=== PATIENT | male | born 1995 | race Caucasian/White ===

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

== ENCOUNTER 2017-01-22 11:46 | Emergency (ER) | payer OTHER ==
[2017-01-22 11:57] VITALS: BP 120/74
--- NOTE | 2017-01-22 12:14 | UC ---
Skin Complaint HPI - HPI Summary HPI Summary: bug bites all over x 1 day very itchy - History of Current Complaint Chief Complaint: UCSkin Time Seen by Provider: 01/22/17 12:03 Stated Complaint: SKIN COMPLAINT Hx Obtained From: Patient Onset/Duration: Gradual Onset, Lasting Days - 1, Still Present Timing: Constant Onset Severity: Moderate Current Severity: Moderate Location: Diffuse Character: Pruritus, Redness Aggravating: Nothing Alleviating: Nothing Associated Signs & Symptoms: Positive: Rash - Allergy/Home Medications Allergies/Adverse Reactions: Allergies Allergy/AdvReac Type Severity Reaction Status Date / Time Bee Venom Allergy Difficulty Verified 01/22/17 11:57 Breathing/Wheezing dust mites, animal dander Allergy Sneezing Uncoded 01/22/17 11:57 Review of Systems Constitutional: Negative Skin: Rash Eyes: Negative ENT: Negative Respiratory: Negative Cardiovascular: Negative Gastrointestinal: Negative All Other Systems Reviewed And Are Negative: Yes PMH/Surg Hx/FS Hx/Imm Hx Previously Healthy: Yes - Surgical History Surgical History: None - Family History Known Family History: Positive: Hypertension - Social History Alcohol Use: None Substance Use Type: None Smoking Status (MU): Never Smoked Tobacco - Immunization History Most Recent Influenza Vaccination: 04/17 Vaccination Up to Date: Yes Physical Exam Triage Information Reviewed: Yes Appearance: Well-Appearing, No Pain Distress, Well-Nourished Vital Signs: Initial Vital Signs Temp 99 F 01/22/17 11:51 Pulse 96 01/22/17 11:51 Resp 16 01/22/17 11:51 BP 120/74 01/22/17 11:51 Pulse Ox 100 01/22/17 11:51 Vital Signs Reviewed: Yes Eye Exam: Normal Eyes: Positive: Conjunctiva Clear ENT: Positive: Normal ENT inspection, Hearing grossly normal, Pharynx normal Neck: Positive: Supple, Nontender, No Lymphadenopathy Respiratory: Positive: Chest non-tender, Lungs clear, Normal breath sounds Cardiovascular: Positive: RRR, No Murmur, Pulses Normal Abdomen Description: Positive: Nontender, No Organomegaly, Soft Bowel Sounds: Positive: Present Skin: Positive: rashes - multiple papular rash on the arms, back , neck , abdomen . Course/Dx - Diagnoses Provider Diagnoses: insect bite Discharge - Discharge Plan Condition: Stable Disposition: HOME Prescriptions: Triamcinolone 0.1% CREAM (NF) [Kenalog 0.1% Cream (NF)] 1 applic TOPICAL BID # 60 gm hydrOXYzine HCL TAB* [Atarax 25 MG TAB*] 25 mg PO TID PRN #15 tab PRN Reason: Itching Patient Education Materials: Insect Bite or Sting (ED) Referrals: Barbara Maynard MD [Primary Care Provider] - If Needed
== END 2017-01-22 12:17 | disposition home or self-care (01) ==
LOC: UCCORT 11:46
DX: S40.862A Insect bite (nonvenomous) of left upper arm, initial encounter (principal); S40.861A Insect bite (nonvenomous) of right upper arm, initial encounter; S10.96XA Insect bite of unspecified part of neck, initial encounter; S30.861A Insect bite (nonvenomous) of abdominal wall, initial encounter; W57.XXXA Bitten or stung by nonvenomous insect and other nonvenomous arthropods, initial encounter; Y93.9 Activity, unspecified; Y92.9 Unspecified place or not applicable
CPT/HCPCS: 99212; G0463

== ENCOUNTER 2017-06-17 09:24 | Emergency (ER) | payer BC, OTHER ==
[2017-06-17 09:43] VITALS: BP 110/60
--- NOTE | 2017-07-09 21:28 | UC ---
Respiratory Complaint HPI - HPI Summary HPI Summary: pt reports intermittent episodes(3) lasting minutes at a time over the last 2 days wherein he feels like he cannot get a good breath. pt has a h/o asthma but does not currently have a rescue inhaler. upon further questioning, pt denies wheezing. he states that his experiences are not like those he has when he has had asthma attacks. rather, he feels like his chest freezes or locks up. he reports a h/o of panic attacks and states that the sx he has been having over the last 2 days feel more like panic. he would like help getting into counseling. 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 Negative: Fever, Chills, Pleuritic Chest Pain, Wheezing, Hemoptysis, Dizziness, Calf Pain, Calf Swelling , Edema, URI, Nasal Congestion, Hoarseness, Sinus Discomfort Related History: Seasonal Allergies - Allergies/Home Medications Allergies/Adverse Reactions: Allergies Allergy/AdvReac Type Severity Reaction Status Date / Time Bee Venom Allergy Difficulty Verified 06/17/17 09:33 Breathing/Wheezing dust mites, animal dander Allergy Sneezing Uncoded 06/17/17 09:33 Home Medications: Home Medications risperiDONE TAB* [RisperDAL*] 1 mg PO BEDTIME 06/17/17 [History Confirmed ] PMH/Surg Hx/FS Hx/Imm Hx Respiratory History: Asthma Psychological History: Anxiety, Other Other Psychological History: adhd - Surgical History Surgical History: None - Family History Known Family History: Positive: Hypertension - Social History Alcohol Use: None Substance Use Type: None Smoking Status (MU): Never Smoked Tobacco - Immunization History Most Recent Influenza Vaccination: not this season Vaccination Up to Date: Yes Review of Systems Constitutional: Negative Skin: Negative ENT: Negative Respiratory: Other - dyspnea Cardiovascular: Negative Gastrointestinal: Negative Neurological: Negative Psychological: Anxious All Other Systems Reviewed And Are Negative: Yes Physical Exam Triage Information Reviewed: Yes Appearance: Well-Appearing, No Pain Distress, Thin Vital Signs: Initial Vital Signs Temp 98.5 F 06/17/17 09:38 Pulse 65 06/17/17 09:38 Resp 18 06/17/17 09:38 BP 110/60 06/17/17 09:38 Pulse Ox 100 06/17/17 09:38 Vital Signs Reviewed: Yes Eyes: Positive: Conjunctiva Clear. Negative: Discharge ENT: Positive: Hearing grossly normal, Pharynx normal, TMs normal. Negative: Nasal congestion, Nasal drainage, Tonsillar swelling, Tonsillar exudate, Trismus , Muffled voice, Hoarse voice, Sinus tenderness Neck: Positive: Supple, Nontender, No Lymphadenopathy Respiratory: Positive: Lungs clear, Normal breath sounds, No respiratory distress, No accessory muscle use, Other: - noted that pt is definitively a chest breath Cardiovascular: Positive: RRR, No Murmur Musculoskeletal Exam: Normal Neurological: Positive: Alert, Muscle Tone Normal Psychological: Positive: Normal Response To Family, Age Appropriate Behavior Skin Exam: Normal UC Diagnostic Evaluation - Laboratory O2 Sat by Pulse Oximetry: 100 Respiratory Course/Dx - Differential Dx/Diagnosis Differential Diagnosis/HQI/PQRI: Asthma, Lower Resp Infection Provider Diagnoses: anxiety Discharge - Discharge Plan Condition: Stable Disposition: HOME Patient Education Materials: Anxiety (ED) Referrals: No Primary Care Phys,NOPCP [Primary Care Provider] - Additional Instructions: [facility] Address: [address] [place] [address] Family counselor in [place], [place] Address: [address] [place] [id number] [facility] Family counselor in [place], [place] Address: [address] [place] [address] Open today 9AM8:45PM FOLLOW-UP CARE: You should establish with a private physician for follow-up care in 3-5 days. If you are unable to get a timely appointment, or if you are worsening, call us or return for re-evaluation. An additional resource available to assist in finding the appropriate physician for your health care needs is the [facility]ician Referral Center. You may contact them by calling [phone].
== END 2017-06-17 12:26 | disposition home or self-care (01) ==
LOC: UCCORT 09:24
DX: F90.9 Attention-deficit hyperactivity disorder, unspecified type (principal); F41.9 Anxiety disorder, unspecified; J45.909 Unspecified asthma, uncomplicated
CPT/HCPCS: 99211; G0463

== ENCOUNTER 2017-07-23 13:54 | Emergency (ER) | payer BC ==
[2017-07-23 14:29] VITALS: BP 92/63
--- NOTE | 2017-07-23 15:09 | UC ---
GI Bleed HPI - HPI Summary HPI Summary: 22 YEAR OLD MALE PRESENTS WITH COMPLAINS OF VOMITING COPIOUS AMOUNTS OF BLOOD. - History Of Current Complaint Chief Complaint: UCGI Stated Complaint: VOMITING BLOOD Time Seen by Provider: 07/23/17 15:09 Hx Obtained From: Patient Onset/Duration: Sudden Onset Severity Initially: Moderate Severity Currently: Moderate Character: Sharp, Cramping - Allergies/Home medications Allergies/Adverse Reactions: Allergies Allergy/AdvReac Type Severity Reaction Status Date / Time Bee Venom Allergy Difficulty Verified 06/17/17 09:33 Breathing/Wheezing dust mites, animal dander Allergy Sneezing Uncoded 06/17/17 09:33 PMH/Surg Hx/FS Hx/Imm Hx Previously Healthy: Yes - Surgical History Surgical History: None - Family History Known Family History: Positive: Hypertension - Social History Alcohol Use: None Substance Use Type: None Smoking Status (MU): Never Smoked Tobacco - Immunization History Most Recent Influenza Vaccination: not this season Vaccination Up to Date: Yes Review of Systems Constitutional: Negative Skin: Negative Eyes: Negative ENT: Negative Respiratory: Negative Cardiovascular: Negative Gastrointestinal: Abdominal Pain Genitourinary: Negative Motor: Negative Neurovascular: Negative Musculoskeletal: Negative Neurological: Negative Psychological: Negative All Other Systems Reviewed And Are Negative: Yes Physical Exam Triage Information Reviewed: Yes Vital Signs: Initial Vital Signs Temp 36.9 C 07/23/17 14:24 Pulse 89 07/23/17 14:24 Resp 18 07/23/17 14:24 BP 92/63 07/23/17 14:24 Pulse Ox 100 07/23/17 14:24 Vital Signs Reviewed: Yes Eye Exam: Normal ENT Exam: Normal Dental Exam: Normal Neck exam: Normal Neck: Positive: 1 Respiratory Exam: Normal Cardiovascular Exam: Normal Abdomen Description: Positive: Other: - EPIGASTRIC PAIN Musculoskeletal Exam: Normal Neurological Exam: Normal Psychological Exam: Normal Skin Exam: Normal Bleed Course/Dx - Differential Dx/Diagnosis Provider Diagnoses: HEMOPTYSIS Discharge - Discharge Plan Condition: Stable Disposition: OTHER Discharge Disposition Comment: PATIENT SUGGESTED TO GO TO THE ER Patient Education Materials: Gastrointestinal Bleeding (ED), Hemoptysis (ED) Referrals: No Primary Care Phys,NOPCP [Primary Care Provider] - Additional Instructions: patient suggested to go to the er for gi bleed.
== END 2017-07-23 15:16 ==
LOC: UCCORT 13:54
DX: R04.2 Hemoptysis (principal); Z91.030 Bee allergy status
CPT/HCPCS: 99211; G0463

== ENCOUNTER 2018-12-20 15:01 | Emergency (ER) | payer BC, OTHER ==
[2018-12-20 15:15] VITALS: BP 140/80
--- NOTE | 2018-12-20 15:27 | UC ---
UC General HPI - HPI Summary HPI Summary: pt cut the base of his L index finger with a clean hunting knife this am while cutting plastic. he cleaned then glued it to stop the bleeding. he denies FB sensation of limited rom. last tetanus is within 10 years but exact date is uncertain. he thinks it may need stitches. no limited rom or FB sensation. - History of Current Complaint Chief Complaint: UCLaceration Stated Complaint: LT FINGER LAC Time Seen by Provider: 12/20/18 15:17 Hx Obtained From: Patient Onset/Duration: Sudden Onset Pain Intensity: 5 Aggravating: NOTHING Alleviating: NOTHING. Associated Signs & Symptoms: Negative: Edema, Fever - Allergy/Home Medications Allergies/Adverse Reactions: Allergies Allergy/AdvReac Type Severity Reaction Status Date / Time MS Bee Venom [Bee Venom] Allergy Difficulty Verified 12/20/18 15:16 Breathing/Wheezing dust mites, animal dander Allergy Sneezing Uncoded 12/20/18 15:16 Home Medications: Home Medications Famotidine TAB* [Pepcid 20 MG TAB*] 20 mg PO DAILY 12/20/18 [History Confirmed 12/20/18] PMH/Surg Hx/FS Hx/Imm Hx - Additional Past Medical History Additional PMH: ADHD, sleep disturbance GI/ History: Gastroesophageal Reflux - Surgical History Surgical History: None - Family History Known Family History: Positive: Hypertension - Social History Alcohol Use: None Substance Use Type: None Smoking Status (MU): Never Smoked Tobacco Type: eCigarettes - Immunization History Most Recent Influenza Vaccination: not this season Hx Tetanus, Diphtheria Vaccination: Yes Vaccination Up to Date: Yes Review of Systems All Other Systems Reviewed And Are Negative: No Constitutional: Negative: Fever Skin: Negative: Rash Motor: Negative: Decreased ROM, Weakness Neurovascular: Negative: Decreased Sensation Musculoskeletal: Negative: Edema Neurological: Negative: Paresthesia, Numbness Physical Exam Triage Information Reviewed: Yes Appearance: Well-Appearing Vital Signs: Initial Vital Signs Temp 98.4 F 12/20/18 15:13 Pulse 99 12/20/18 15:13 Resp 16 12/20/18 15:13 BP 140/80 12/20/18 15:13 Pulse Ox 99 12/20/18 15:13 Vital Signs Reviewed: Yes Eyes: Positive: Conjunctiva Clear Respiratory: Positive: No respiratory distress Cardiovascular: Positive: RRR Musculoskeletal: Positive: Other: - L hand: 1cm laceration base of L index finger with a thick dry layer of glue. finger has gross s/v/m function. rest of hand is uninjured and has full s/v/m function. Neurological: Positive: Alert Psychological: Positive: Age Appropriate Behavior Skin Exam: Normal Skin: Negative: Rashes Course/Dx - Course Course Of Treatment: PT DENIES HX HTN. BP IS VISIT RELATED. PT AGREES TO HAVE GLUE REMOVED TO INSPECT THE WOUND, IT PEELED OFF EASILY. FAT SEEN NO ACTIVE BLEEDING AND NO MM OR TENDON INJURY AND NO FB'S. PROCEDURE:TIME OUT DONE. SITE PREP WITH BETADINE. LOCAL WITH 1ML AND 1% LIDOCAINE. WOUND EXPLORED AND AGAIN NO FB'S, TENDON OR MM INJURY. IRRIGATED UNDER PRESSURE WITH LARGE AMOUNTS OF STERILE NACL. PRE BETADINE. DRAPED THEN CLOSED WITH 5-0 NYLON AND 1 HORIZONTAL MATTRESS STITCH. STERILE TECHNIQUE USED. PT TOLERATED WELL. SITE COVERED WITH ANTIBIOTIC OINTMENT AND A BANDAGE. S/V INTACT AFTER. - Diagnoses Provider Diagnosis: Laceration of left index finger Discharge - Sign-Out/Discharge Documenting (check all that apply): Patient Departure All imaging exams completed and their final reports reviewed: No Studies - Discharge Plan Condition: Stable Disposition: HOME Patient Education Materials: Care For Your Stitches (DC) Referrals: Gin Win PA [Primary Care Provider] - Additional Instructions: RETURN HERE OR GO TO YOUR DOCTOR FOR SUTURE REMOVAL IN 7-10 DAYS. - Billing Disposition and Condition Condition: STABLE Disposition: Home
[2018-12-20] MEDS ORDERED: Lidocaine 1%* 5 ML VIAL INJ ONE (15:29)
== END 2018-12-20 15:56 | disposition home or self-care (01) ==
LOC: UCCORT 15:01
DX: S61.221A Laceration with foreign body of left index finger without damage to nail, initial encounter (principal); F90.9 Attention-deficit hyperactivity disorder, unspecified type; Z91.09 Other allergy status, other than to drugs and biological substances; Z91.030 Bee allergy status; W26.0XXA Contact with knife, initial encounter; Y92.9 Unspecified place or not applicable
CPT/HCPCS: 12001; 99211; G0463